=== PATIENT | female | born 1960 | race Asian ===

== ENCOUNTER 2017-04-21 10:46 | Inpatient (IN) | payer OTHER ==
[~2017-04-21] VITALS: Ht 154.9 cm; Wt 53.7 kg
[~2017-04-21 10:46] MED LIST: LOSA25TA5 PO; METH2.5T PO
[2017-04-21] MEDS ORDERED: KETOROLAC 30 MG/1 ML ONE (11:14)
[2017-04-21] MEDS ORDERED: DIPHENHYDRAMINE 50 MG/ML, 1ML ONE (11:15)
[2017-04-21] MEDS ORDERED: METOCLOPRAMIDE 5 MG/ML, 2ML ONE (11:15)
[2017-04-21] MEDS ORDERED: KETOROLAC 30 MG/1 ML IVPush ONE (11:30)
[2017-04-21] MEDS ORDERED: DIPHENHYDRAMINE 50 MG/ML, 1ML IVPush ONE (11:30)
[2017-04-21] MEDS ORDERED: SODIUM CHLORIDE FLUSH 10ML SYR IVF ONE (11:30)
[2017-04-21] MEDS ORDERED: SODIUM CHLORIDE 0.9% 1,000ML IVBOLUS ONE (11:30)
[2017-04-21] MEDS ORDERED: METOCLOPRAMIDE 5 MG/ML, 2ML IVPush ONE (11:30)
[2017-04-21 11:43] LABS: HEMOGLOBIN 14.1 g/dL (11.7-16.4); WHITE BLOOD COUNT 9.1 x10^3/uL (3.4-10)
[2017-04-21] MEDS ORDERED: CHOL2000 PO (11:49)
[2017-04-21] MEDS ORDERED: LOSA100T6 PO (11:49)
[2017-04-21] MEDS ORDERED: ASPI1TAB31 PO (11:49)
[2017-04-21] MEDS ORDERED: FOLI-17 PO (11:49)
[2017-04-21] MEDS ORDERED: [UNRECOGNIZED DRUG - CODE] PO (11:49)
[2017-04-21 11:54] LABS: BLOOD UREA NITROGEN 16 mg/dL (7-18)
[2017-04-21 11:58] LABS: ASPARTATE AMINO TRANSFERASE 23 U/L (15-37)
[2017-04-21] MEDS ORDERED: DEXAMETHASONE 4 MG/ML, 1ML IVPush SCH (12:30)
[2017-04-21] MEDS ORDERED: morphine SULFATE 10 MG/ML, 1ML IVPush ONE (12:30)
[2017-04-21] MEDS ORDERED: DEXAMETHASONE 4 MG/ML, 1ML ONE (13:37)
[2017-04-21] MEDS ORDERED: morphine SULFATE 10 MG/ML, 1ML ONE (13:38)
[2017-04-21] MEDS ORDERED: morphine SULFATE 10 MG/ML, 1ML IVPush PRN (15:30)
[2017-04-21] MEDS ORDERED: HYDROcodone/APAP 5/325 TABLET PO PRN (15:30)
[2017-04-21] MEDS ORDERED: LABETALOL 5MG/ML, 20ML IVPush PRN (15:30)
[2017-04-21] MEDS ORDERED: ENALAPRILAT 1.25 MG/ML, 2ML IVPush PRN (15:30)
[2017-04-21] MEDS ORDERED: ONDANSETRON ODT 4 MG PO PRN (15:30)
[2017-04-21] MEDS ORDERED: ONDANSETRON 2MG/ML, 2ML IVPush PRN (15:30)
[2017-04-21] MEDS ORDERED: TEMAZEPAM 15 MG CAPSULE PO PRN (15:30)
[2017-04-21] MEDS ORDERED: ACETAMINOPHEN 325 MG TABLET PO PRN (15:30)
[2017-04-21 17:30] VITALS: BP 104/68
[2017-04-21 18:09] VITALS: BP 104/68
[2017-04-21 20:00] VITALS: BP 116/69
[2017-04-21] MEDS: FAMOTIDINE 20 MG TABLET PO SCH (20:01)
[2017-04-21] MEDS ORDERED: LEVETIRACETAM 500 MG TABLET PO SCH (21:00)
[2017-04-22] VITALS: BP 119/77
[2017-04-22 04:00] VITALS: BP 112/67
[2017-04-22 05:54] LABS: HEMATOCRIT 37.5 % (34.6-47.8); HEMOGLOBIN 12.5 g/dL (11.7-16.4); WHITE BLOOD COUNT 9.5 x10^3/uL (3.4-10)
[2017-04-22 06:08] LABS: ASPARTATE AMINO TRANSFERASE 17 U/L (15-37); BLOOD UREA NITROGEN 16 mg/dL (7-18)
[2017-04-22 07:03] VITALS: BP 126/80
[2017-04-22] MEDS: FAMOTIDINE 20 MG TABLET PO SCH (07:20)
[2017-04-22] MEDS ORDERED: LOSARTAN 50MG TABLET PO SCH (09:00)
[2017-04-22] MEDS ORDERED: DEXA4TAB PO (09:29)
[2017-04-22] MEDS ORDERED: DEXAMETHASONE 4 MG TABLET PO SCH (11:00)
== END 2017-04-22 10:59 | disposition home or self-care (01) | DRG 85 ==
LOC: ED 12:15 → EDIP 12:27 → 4EST 17:05 → DCLOUNGE 04-22 10:54
PROVIDERS: ADMIT Internal Medicine; ATTEND Internal Medicine
DX: S06.5X0A Traumatic subdural hemorrhage without loss of consciousness, initial encounter (principal); G93.6 Cerebral edema; M32.9 Systemic lupus erythematosus, unspecified; I10 Essential (primary) hypertension; S50.02XA Contusion of left elbow, initial encounter; G43.909 Migraine, unspecified, not intractable, without status migrainosus; S00.93XA Contusion of unspecified part of head, initial encounter; W01.0XXA Fall on same level from slipping, tripping and stumbling without subsequent striking against object, initial encounter; Y93.89 Activity, other specified; Y92.89 Other specified places as the place of occurrence of the external cause; Y99.8 Other external cause status; Z83.3 Family history of diabetes mellitus; Z91.81 History of falling
CPT/HCPCS: 36415; 70450; 80053; 81003; 85025; 85379; 85610; 85651; 85730; 96361; 96374; 96375; J1100; J1885; J1200; J2270; J2765; J7030

== ENCOUNTER 2017-05-27 11:09 | Inpatient (IN) | payer OTHER ==
[~2017-05-27] VITALS: Ht 154.9 cm; Wt 56.9 kg
[~2017-05-27 11:09] MED LIST changes: +ASPI1TAB31 PO; +CHOL2000 PO; +DEXA4TAB PO; +FOLI-17 PO; +LOSA100T6 PO; +[UNRECOGNIZED DRUG - CODE] PO
[2017-05-27] MEDS ORDERED: TRAM50TA2 PO (12:02)
[2017-05-27] MEDS ORDERED: SODIUM CHLORIDE FLUSH 10ML SYR IVF ONE (12:30)
[2017-05-27 13:07] LABS: HEMATOCRIT 41.9 % (34.6-47.8); HEMOGLOBIN 14.3 g/dL (11.7-16.4)
[2017-05-27 13:36] LABS: IS PT STATUS REG ER OR PRE ER? YES
[2017-05-27 13:43] LABS: BLOOD UREA NITROGEN 15 mg/dL (7-18)
[2017-05-27] MEDS ORDERED: SODIUM CHLORIDE FLUSH 10ML SYR IVF PRN (14:30)
[2017-05-27] MEDS ORDERED: GADOBUTROL 7.5 MMOL/7.5 ML PFS ONE (14:47)
[2017-05-27] MEDS: SODIUM CHLORIDE 0.9% 1,000 ML IV SCH (16:38)
[2017-05-27] MEDS ORDERED: LABETALOL 5MG/ML, 20ML IVPush PRN (17:00)
[2017-05-27] MEDS ORDERED: POLYETHYLENE GLYCOL 17 GM PACKET PO PRN (17:00)
[2017-05-27] MEDS ORDERED: ACETAMINOPHEN 325 MG TABLET PO PRN (17:00)
[2017-05-27] MEDS ORDERED: ENALAPRILAT 1.25 MG/ML, 2ML IVPush PRN (17:00)
[2017-05-27] MEDS ORDERED: ONDANSETRON 2MG/ML, 2ML IVPush PRN (17:00)
[2017-05-27 17:28] VITALS: BP 126/80
[2017-05-28] MEDS: SODIUM CHLORIDE 0.9% 1,000 ML IV SCH (01:08)
[2017-05-28 04:00] VITALS: BP 142/80
[2017-05-28 04:39] LABS: HEMATOCRIT 38.5 % (34.6-47.8); HEMOGLOBIN 13.1 g/dL (11.7-16.4); WHITE BLOOD COUNT 6.1 x10^3/uL (3.4-10)
[2017-05-28 04:54] LABS: ASPARTATE AMINO TRANSFERASE 28 U/L (15-37); BLOOD UREA NITROGEN 18 mg/dL (7-18)
[2017-05-28] MEDS ORDERED: TEMPLATE NON-FORMULARY MED. (Losartan Potassium** 100 MG) PO SCH (09:00)
[2017-05-28] MEDS: LOSARTAN 50MG TABLET PO SCH (09:02)
[2017-05-28] MEDS: SENNA/DOCUSATE TABLET PO SCH (09:02)
[2017-05-28] MEDS ORDERED: HYDROcodone/APAP 5/325 TABLET ONE (12:07)
[2017-05-28] MEDS: HYDROcodone/APAP 5/325 TABLET PO PRN (12:10)
[2017-05-29 04:08] VITALS: BP 111/63
[2017-05-29 05:03] LABS: HEMATOCRIT 38.8 % (34.6-47.8); HEMOGLOBIN 12.9 g/dL (11.7-16.4); WHITE BLOOD COUNT 6.8 x10^3/uL (3.4-10)
[2017-05-29 05:34] LABS: ASPARTATE AMINO TRANSFERASE 16 U/L (15-37); BLOOD UREA NITROGEN 15 mg/dL (7-18)
[2017-05-29] MEDS ORDERED: MAGNESIUM SULFATE PMX 2GM/50ML 50 ML IV ONE (07:00)
[2017-05-29 07:17] VITALS: BP 114/74
[2017-05-29] MEDS: LOSARTAN 50MG TABLET PO SCH (09:00)
[2017-05-29] MEDS ORDERED: OMNIPAQUE 350 MG/ML, 100ML BOTTLE ONE (10:23)
[2017-05-29] MEDS: LEVETIRACETAM 500 MG TABLET PO SCH ×2 (10:27→21:49)
[2017-05-29] MEDS: SENNA/DOCUSATE TABLET PO SCH (10:37)
[2017-05-29 12:39] VITALS: BP 119/85
[2017-05-29] MEDS ORDERED: SODIUM CHLORIDE 0.9%, 250ML IVBOLUS ONE (15:00)
[2017-05-29] MEDS ORDERED: LIDOCAINE 1%, 20ML ONE (15:29)
[2017-05-29] MEDS ORDERED: FENTANYL PF 100 MCG/2ML ONE ×2 (16:09→16:48)
[2017-05-29] MEDS ORDERED: DIPHENHYDRAMINE 50 MG/ML, 1ML ONE (16:48)
[2017-05-29] MEDS ORDERED: VISIPAQUE 320 MG/ML, 150ML BOTTLE ONE (17:00)
[2017-05-29] MEDS ORDERED: VISIPAQUE 320MG/ML, 50ML BOTTLE ONE (17:00)
[2017-05-29] MEDS ORDERED: SODIUM CHLORIDE 0.9% 1,000 ML IV SCH (19:00)
[2017-05-29] MEDS: HYDROcodone/APAP 5/325 TABLET PO PRN (21:49)
[2017-05-30] MEDS ORDERED: SODIUM CHLORIDE 0.9%, 500ML IVBOLUS ONE (03:00)
[2017-05-30 05:47] VITALS: BP 103/61
[2017-05-30 06:33] LABS: HEMATOCRIT 36.2 % (34.6-47.8); HEMOGLOBIN 12.2 g/dL (11.7-16.4); WHITE BLOOD COUNT 5.9 x10^3/uL (3.4-10)
[2017-05-30 06:45] LABS: ASPARTATE AMINO TRANSFERASE 13 U/L (15-37); BLOOD UREA NITROGEN 12 mg/dL (7-18)
[2017-05-30] MEDS: LEVETIRACETAM 500 MG TABLET PO SCH ×2 (07:07→20:53)
[2017-05-30] MEDS: LOSARTAN 50MG TABLET PO SCH (09:00)
[2017-05-30] MEDS: SENNA/DOCUSATE TABLET PO SCH (09:00)
[2017-05-30] MEDS: SODIUM CHLORIDE 0.9% 1,000 ML IV SCH ×2 (11:14→15:30)
[2017-05-30] MEDS ORDERED: SODIUM CHLORIDE 0.9% 1,000 ML IV SCH (19:00)
[2017-05-30] MEDS: BUTALB/APAP/CAFFEINE 50MG/325MG/40MG PO PRN (20:00)
[2017-05-30 23:00] VITALS: BP 119/72
[2017-05-31 01:32] VITALS: BP 112/73
[2017-05-31 04:20] VITALS: BP 111/74
[2017-05-31 05:22] LABS: HEMATOCRIT 35.5 % (34.6-47.8); HEMOGLOBIN 12.3 g/dL (11.7-16.4); WHITE BLOOD COUNT 4.9 x10^3/uL (3.4-10)
[2017-05-31] MEDS: BUTALB/APAP/CAFFEINE 50MG/325MG/40MG PO PRN ×2 (05:30→18:22)
[2017-05-31 05:53] LABS: BLOOD UREA NITROGEN 11 mg/dL (7-18)
[2017-05-31 06:48] VITALS: BP 116/78
[2017-05-31] MEDS: LOSARTAN 50MG TABLET PO SCH (08:39)
[2017-05-31] MEDS: SENNA/DOCUSATE TABLET PO SCH (08:39)
[2017-05-31] MEDS: LEVETIRACETAM 500 MG TABLET PO SCH ×2 (08:39→20:23)
[2017-05-31 19:21] VITALS: BP 114/70
[2017-06-01 00:54] VITALS: BP 115/74
[2017-06-01 04:22] VITALS: BP 127/76
[2017-06-01 08:31] VITALS: BP 113/70
[2017-06-01] MEDS: LOSARTAN 50MG TABLET PO SCH (09:24)
[2017-06-01] MEDS: LEVETIRACETAM 500 MG TABLET PO SCH (09:24)
[2017-06-01] MEDS: SENNA/DOCUSATE TABLET PO SCH (09:24)
[2017-06-01] MEDS ORDERED: LEVE500T53 PO (11:14)
[2017-06-01] MEDS ORDERED: OXYC-302 PO (11:18)
[2017-06-01] MEDS ORDERED: PNEUMOCOCCAL 23 VACCINE IM-VACC ONE (12:30)
[2017-06-01] MEDS ORDERED: BUTA-177 PO (12:39)
[2017-06-02] MEDS ORDERED: LEVETIRACETAM 500 MG TABLET PO SCH (09:00)
== END 2017-06-01 14:42 | disposition home or self-care (01) | DRG 65 ==
LOC: ED 12:03 → EDIP 14:03 → CCU 15:55 → 4NOR 05-29 07:13 → ICU 05-29 13:32 → CCU 05-30 18:49 → 3NE 05-30 22:55
PROVIDERS: ADMIT Internal Medicine; ATTEND Internal Medicine
PROC: B3181ZZ Fluoroscopy of Bilateral Internal Carotid Arteries using Low Osmolar Contrast (ICD-10-PCS; principal; 2017-05-29)
DX: I62.01 Nontraumatic acute subdural hemorrhage (principal); G81.94 Hemiplegia, unspecified affecting left nondominant side; M32.19 Other organ or system involvement in systemic lupus erythematosus; M32.9 Systemic lupus erythematosus, unspecified; G43.909 Migraine, unspecified, not intractable, without status migrainosus; I10 Essential (primary) hypertension; Z83.3 Family history of diabetes mellitus; Z80.42 Family history of malignant neoplasm of prostate; Z91.81 History of falling; Z88.0 Allergy status to penicillin; Z79.899 Other long term (current) drug therapy; Z88.1 Allergy status to other antibiotic agents; Z23 Encounter for immunization; I62.03 Nontraumatic chronic subdural hemorrhage; S50.02XA Contusion of left elbow, initial encounter
CPT/HCPCS: 36226; 36415; 70450; 70496; 70544; 70553; 71010; 80048; 80053; 82040; 82962; 83735; 84484; 85025; 85347; 85384; 85576; 85610; 85730; 87081; 90732; 93005; 95819; 99285; A9585; J3010; J3490; Q9967; C1751; C1769; C1894; J1200; J3475; J7030; J7040; J7050

== ENCOUNTER → 2017-06-11 | Outpatient (CLI) | payer OTHER ==
[~2017-06-11] MED LIST changes: +BUTA-177 PO; +LEVE500T53 PO; +OXYC-302 PO; +TRAM50TA2 PO
== END | disposition home or self-care (01) ==
LOC: CFH 08:07
PROVIDERS: ATTEND Registered Nurse Registered Nurse First Assistant
DX: S06.5X0D Traumatic subdural hemorrhage without loss of consciousness, subsequent encounter (principal); X58.XXXD Exposure to other specified factors, subsequent encounter
CPT/HCPCS: 70450

== ENCOUNTER → 2017-07-01 | Outpatient (CLI) | payer OTHER | LOC: CFH 14:53 | PROVIDERS: ATTEND Neurological Surgery | DX: S06.5X0D Traumatic subdural hemorrhage without loss of consciousness, subsequent encounter (principal); X58.XXXD Exposure to other specified factors, subsequent encounter | CPT/HCPCS: 70450 ==

== ENCOUNTER → 2017-07-23 | Outpatient (CLI) | payer OTHER | END | disposition home or self-care (01) | LOC: CFH 14:23 | PROVIDERS: ATTEND Neurological Surgery | DX: S06.5X0D Traumatic subdural hemorrhage without loss of consciousness, subsequent encounter (principal); X58.XXXD Exposure to other specified factors, subsequent encounter | CPT/HCPCS: 70450 ==

== ENCOUNTER → 2017-08-19 | Outpatient (CLI) | payer OTHER | END | disposition home or self-care (01) | LOC: CFH 12:15 | PROVIDERS: ATTEND Registered Nurse Registered Nurse First Assistant | DX: S06.5X0A Traumatic subdural hemorrhage without loss of consciousness, initial encounter (principal); X58.XXXA Exposure to other specified factors, initial encounter; Y93.89 Activity, other specified; Y92.89 Other specified places as the place of occurrence of the external cause; Y99.8 Other external cause status; Z98.890 Other specified postprocedural states | CPT/HCPCS: 70450 ==

== ENCOUNTER → 2017-11-04 | Outpatient (CLI) | payer OTHER | LOC: CFH 11:26 | PROVIDERS: ATTEND Registered Nurse Registered Nurse First Assistant | DX: S06.5X0A Traumatic subdural hemorrhage without loss of consciousness, initial encounter (principal); X58.XXXA Exposure to other specified factors, initial encounter; Y93.89 Activity, other specified; Y92.89 Other specified places as the place of occurrence of the external cause; Y99.8 Other external cause status | CPT/HCPCS: 70450 ==

== ENCOUNTER 2018-05-20 21:15 | Emergency (ER) | payer OTHER ==
[~2018-05-20] VITALS: Ht 154.9 cm; Wt 57.1 kg
[~2018-05-20 21:15] MED LIST changes: -LOSA100T6 PO; +LOSA100T7 PO; -LOSA25TA5 PO; +LOSA25TA6 PO
[2018-05-20 21:16] VITALS: BP 113/80
[2018-05-20] MEDS ORDERED: IBUPROFEN 600 MG TABLET ONE (22:12)
[2018-05-20] MEDS ORDERED: IBUPROFEN 200 MG TABLET PO ONE (22:30)
[2018-05-20 22:33] LABS: RAPID INFLUENZA A Negative (Negative); RAPID INFLUENZA B Negative (Negative)
== END 2018-05-20 22:59 | disposition home or self-care (01) ==
LOC: ED 22:11
DX: J02.9 Acute pharyngitis, unspecified (principal); I10 Essential (primary) hypertension; Z90.89 Acquired absence of other organs; Z87.891 Personal history of nicotine dependence
CPT/HCPCS: 87400; 93005; 99284